=== PATIENT | female | born 1965 | race African-American/Black ===

== ENCOUNTER 2017-12-16 15:28 | Emergency (ER) | payer BC, OTHER ==
[~2017-12-16] VITALS: Ht 167.6 cm; Wt 122.1 kg
[2017-12-16 16:58] LABS: HEMOGLOBIN 12.1 G/DL (11.9-15.5); MCHC 32.7 G/DL (30.0-36.0); MCV 64.1 FL (83-99); PLATELET COUNT 288 K/uL (156-360); RBC DIS.WIDTH-CV 16.3 % (11.8-14.6); RBC DIS.WIDTH-SD 35.7 % (39-53); RED BLOOD COUNT 5.77 M/uL (3.80-5.20); WHITE BLOOD COUNT 5.9 K/uL (4.1-10.2)
[2017-12-16 17:12] LABS: CHLORIDE 102 mEq/L (99-109); POTASSIUM 4.1 mEq/L (3.7-5.4); SODIUM 140 mEq/L (136-147)
[2017-12-16 17:13] LABS: GLUCOSE 100 mg/dL (70-99)
[2017-12-16 17:17] LABS: CREATININE 0.8 mg/dL (0.6-1.3)
[2017-12-16 17:18] LABS: GFR ESTIMATE (CALCULATED) > 59 mL/min/; UREA NITROGEN (BUN) 14 mg/dL (9-23)
[2017-12-16 17:21] LABS: TROP-I INTERPRETATION NEGATIVE; TROPONIN-I < 0.01 ng/mL (0.0-0.30)
[2017-12-16 18:54] VITALS: BP 133/74
== END 2017-12-16 18:57 | disposition home or self-care (01) ==
LOC: EME 15:28
DX: R00.2 Palpitations (principal); I10 Essential (primary) hypertension
CPT/HCPCS: 71046; 80048; 84484; 85027; 93005; 99281; 99284; J7030

== ENCOUNTER 2018-02-20 00:21 | Emergency (ER) | payer BC, OTHER ==
[~2018-02-20] VITALS: Ht 167.6 cm; Wt 124.3 kg
[2018-02-20 01:04] LABS: HEMATOCRIT 35.9 % (36.0-46.0); HEMOGLOBIN 11.8 G/DL (11.9-15.5); MCH 21.1 PG (29.0-34.0); MCHC 32.9 G/DL (30.0-36.0); MCV 64.3 FL (83-99); PLATELET COUNT 298 K/uL (156-360); RBC DIS.WIDTH-CV 16.8 % (11.8-14.6); RBC DIS.WIDTH-SD 36.7 % (39-53); RED BLOOD COUNT 5.58 M/uL (3.80-5.20); WHITE BLOOD COUNT 7.2 K/uL (4.1-10.2)
[2018-02-20 01:04] LABS: APPEARANCE SL.HAZY ((CLEAR)); BILIRUBIN NEGATIVE; BLOOD NEGATIVE; COLOR YELLOW ((YELLOW)); GLUCOSE (STRIP) NEGATIVE; KETONES NEGATIVE; LEUKOCYTES NEGATIVE; NITRITE NEGATIVE; PROTEIN (STRIP) NEGATIVE; UROBILINOGEN 0.2 MG/DL (0.2-1.0)
[2018-02-20 01:06] LABS: ALBUMIN 3.6 g/dL (3.2-4.8); CHLORIDE 104 mEq/L (99-109); POTASSIUM 3.8 mEq/L (3.7-5.4); SODIUM 141 mEq/L (136-147)
[2018-02-20 01:08] LABS: BACTERIA RARE /HPF; EPITHELIAL CELLS 2+ /HPF; MUCUS TRACE /LPF; RED BLOOD CELLS 0-5 /HPF (0-5); UCUL ADDED? NO; WHITE BLOOD CELLS 0-5 /HPF (0-5)
[2018-02-20 01:09] LABS: GLUCOSE 117 mg/dL (70-99); TOTAL PROTEIN 7.5 g/dL (6.4-8.3)
[2018-02-20 01:11] LABS: TOTAL BILIRUBIN 0.6 mg/dL (0.0-1.0)
[2018-02-20 01:12] LABS: ALKALINE PHOSPHATASE 97 IU/L (3-129)
[2018-02-20 01:13] LABS: CREATININE 0.8 mg/dL (0.6-1.3); GFR ESTIMATE (CALCULATED) > 59 mL/min/
[2018-02-20 01:14] LABS: AST (GOT) 17 IU/L (2-34); UREA NITROGEN (BUN) 14 mg/dL (9-23)
[2018-02-20 01:15] LABS: ALT (GPT) 13 IU/L (3-49)
[2018-02-20 01:23] LABS: QUANTITATIVE HCG < 4.0 MIU/ML
[2018-02-20 02:32] LABS: TROP-I INTERPRETATION NEGATIVE; TROPONIN-I < 0.01 ng/mL (0.0-0.30)
[2018-02-20 05:01] LABS: TROP-I INTERPRETATION NEGATIVE; TROPONIN-I < 0.01 ng/mL (0.0-0.30)
[2018-02-20] MEDS ORDERED: ZANTAC150 MG PO (06:17)
[2018-02-20 06:32] VITALS: BP 102/68
== END 2018-02-20 06:32 | disposition home or self-care (01) ==
LOC: EME 00:21
PROVIDERS: Emergency Medicine
DX: R10.13 Epigastric pain (principal); I10 Essential (primary) hypertension; K21.9 Gastro-esophageal reflux disease without esophagitis; Z90.49 Acquired absence of other specified parts of digestive tract
CPT/HCPCS: 80053; 81003; 84484; 84702; 85027; 93005; 99281; 99284